=== PATIENT | male | born 1985 | race Caucasian/White ===

== ENCOUNTER → 2024-10-26 | Outpatient (CLI) | payer MEDICAID | LOC: M LAB 12:42 | PROVIDERS: ATTEND Family Medicine | DX: Z20.1 Contact with and (suspected) exposure to tuberculosis (principal) ==

== ENCOUNTER → 2024-12-30 | Outpatient (REF) | payer MEDICAID, OTHER ==
[2024-12-30 12:57] LABS: HEMATOCRIT 45.3 % (42.0-52.0); HEMOGLOBIN 15.4 g/dl (13.5-17.5); MEAN CORPUSCULAR HEMOGLOBIN 31.8 pg (27.0-33.0); MEAN CORPUSCULAR VOLUME 93.6 fl (80.0-96.0); PLATELET COUNT, AUTOMATED 244 10^3/uL (150-450); RED BLOOD COUNT 4.84 10^6/uL (4.30-6.10); WHITE BLOOD COUNT 5.7 10^3/uL (4.0-10.0)
[2024-12-30 13:05] LABS: ALKALINE PHOSPHATASE 43 U/L (40-129); ALT/SGPT 34 U/L (7.0-40); AST/SGOT 20 U/L (<34); BILIRUBIN,TOTAL 0.8 MG/DL (0.3-1.2); BLOOD UREA NITROGEN 12 MG/DL (9-23); CALCIUM LEVEL 9.1 MG/DL (8.5-10.1); CARBON DIOXIDE LEVEL 30 MMOL/L (20-31); CHLORIDE LEVEL 106 MMOL/L (98-107); CHOLESTEROL LEVEL 220 MG/DL (<200); CHOLESTEROL RISK RATIO 3.96 (<5); GLOMERULAR FILTRATION RATE > 90.0 (>60); GLUCOSE, FASTING 98 MG/DL (60-100); HDL CHOLESTEROL 55.5 MG/DL (>40); LDL CHOLESTEROL 145.3 MG/DL (<100); NON-HDL-C 164.5 MG/DL; POTASSIUM SERUM 4.5 MMOL/L (3.5-5.1); SODIUM LEVEL 142 MMOL/L (136-145); TRIGLYCERIDES LEVEL 96 MG/DL (<150)
[2024-12-30 13:06] LABS: THYROID STIMULATING HORMONE 1.977 uIU/ML (0.55-4.78)
[2024-12-30 13:28] LABS: HEMOGLOBIN A1c 5.1 % (4.0-6.0)
== END ==
LOC: M LAB REF 12:06
PROVIDERS: ATTEND Student in an Organized Health Care Education/Training Program
DX: Z68.31 Body mass index [BMI] 31.0-31.9, adult (principal)

== ENCOUNTER 2025-07-12 14:53 | Outpatient (RCR) | payer OTHER | END 2025-07-21 | LOC: M PT 14:53 | PROVIDERS: ATTEND Psychiatry & Neurology Neurology | DX: M54.9 Dorsalgia, unspecified (principal) ==